=== PATIENT | male | born 1960 | race Caucasian/White ===

== ENCOUNTER 2017-06-06 15:57 | Emergency (ER) | payer MEDICAID, SELFPAY ==
[2017-06-06 15:59] VITALS: BP 130/78; PULSE 75; RESP 16; TEMP 36.8; O2SAT 98; BMI 31.4
--- NOTE | 2017-06-06 16:21 | HMH.EDURI ---
ED Disposition Clinical Impression: Influenza Disposition: Home, Self-Care Condition on Discharge: Good Additional Instructions: basic hygiene and quarantine precautions . - Critical Care Critical Care Time: No Attestation: On , the high probability of a clinically significant, sudden or life threatening deterioration of the following system(s) required my full and direct attention, intervention and personal management. The time I documented below is in addition to time spent performing reported procedures but includes the following listed in this critical care notation. Medical Decision Making - Medical Records Medical records reviewed: Yes: I reviewed the patient's medical records. Vital Signs: 06/06/17 15:59 06/06/17 16:24 Temperature 98.3 F Temperature Source Oral Oral Pulse Rate [Right Brachial] 75 Respiratory Rate 16 Blood Pressure [Right Arm] 130/78 Blood Pressure Mean [Right Arm] 95 Blood Pressure Source [Right Arm] Automatic Cuff Blood Pressure Position [Right Arm] Sitting 02 Sat by Pulse Oximetry 98 Oxygen Delivery Method Room Air - Lab Data Lab Results 06/06/17 16:10: Influenza Type A Ag Negative, Influenza Type B Ag Positive A, Group A Strep Rapid Negative Orders (Tests/Meds): ED MEDICATIONS Discontinued Medications Generic Name Dose Route Start Last Admin Trade Name Freq PRN Reason Stop Dose Admin Acetaminophen 1,000 mg 06/06/17 16:28 06/06/17 16:32 Tylenol 500mg Tablet PO 06/06/17 16:29 1,000 mg ONCE ONE Administration ORDERS Category Date Time Status Strep Screen Confirmation Stat Micro 06/06/17 16:10 Received - Antonio Inquiry Pt receiving controlled substance: No Antonio was queried for this patient: No URI/Sore Throat HPI - General Chief Complaint: Fever Stated Complaint: Fever, weakness Mode of Arrival: Ambulatory Source of Information: Patient, Spouse Limitations: No Limitations Description of Symptoms (Recalled from ER Triage Doc. by RN): Patient states he has has a fever and weakness for 2 days. States he has also had a slight cough - History of Present Illness HPI Narrative: 57 years old white male diabetic who started experiencing headache sore throat productive cough since yesterday. States that his brother was sick with similar symptoms. His sat is 100% on room air. Heart rate is 73/min. Complaint: fever, sore throat Onset (ago): day(s) (started Yesterday.) Relieving factors: nothing Exacerbating factors: nothing Description of mucous: yellow Able to tolerate fluids by mouth: Yes Context: sick contacts (his brother . ) Associated symptoms: denies other symptoms - Related Data Home Medications Medication Instructions Recorded Confirmed aspirin 81 mg tablet,delayed 81 mg PO QDAY 05/28/17 06/06/17 release blood sugar diagnostic strips See Dose Instructions .ROUTE 05/28/17 06/06/17 .MEDSUPPLY #20 each gabapentin 300 mg capsule 300 mg PO TID 05/28/17 06/06/17 hydroxyzine pamoate 25 mg capsule 25 mg PO QHS PRN cap 05/28/17 06/06/17 lisinopril 5 mg tablet 5 mg PO QDAY 05/28/17 06/06/17 lovastatin 10 mg tablet 10 mg PO QHS tab 05/28/17 06/06/17 metformin 500 mg tablet 500 mg PO BID 05/28/17 06/06/17 triamterene 37.5 1 tab PO QAM 05/28/17 06/06/17 mg-hydrochlorothiazide 25 mg tablet Allergies Allergy/AdvReac Type Severity Reaction Status Date / Time aspirin [ASPIRIN] Allergy Intermediate HEART Verified 05/28/17 13:55 BEATING FAST [facility] History I have reviewed the patient's past medical history: Yes Medical History: Reports:: Diabetes Mellitus Type 2 Denies:: Cancer, MRSA Other Surgeries: No: Pacemaker Amputation: No Fractures: No - *Social History Educational Level: Attended High School Smoking Status: Never smoker Alcohol Intake: never - Psychiatric History Expresses thoughts of harming self/others: None Suicide Plan Description: No Plan ROS Obtained: Yes All syste
--- NOTE | 2017-06-06 16:25 | ED_ITS ---
ED Disposition Clinical Impression: Influenza Disposition: Home, Self-Care Condition on Discharge: Good Additional Instructions: basic hygiene and quarantine precautions . - Critical Care Critical Care Time: No Attestation: On , the high probability of a clinically significant, sudden or life threatening deterioration of the following system(s) required my full and direct attention, intervention and personal management. The time I documented below is in addition to time spent performing reported procedures but includes the following listed in this critical care notation. Medical Decision Making - Medical Records Medical records reviewed: Yes: I reviewed the patient's medical records. Vital Signs: 06/06/17 15:59 06/06/17 16:24 Temperature 98.3 F Temperature Source Oral Oral Pulse Rate [Right Brachial] 75 Respiratory Rate 16 Blood Pressure [Right Arm] 130/78 Blood Pressure Mean [Right Arm] 95 Blood Pressure Source [Right Arm] Automatic Cuff Blood Pressure Position [Right Arm] Sitting 02 Sat by Pulse Oximetry 98 Oxygen Delivery Method Room Air - Lab Data Lab Results 06/06/17 16:10: Influenza Type A Ag Negative, Influenza Type B Ag Positive A, Group A Strep Rapid Negative Orders (Tests/Meds): ED MEDICATIONS Discontinued Medications Generic Name Dose Route Start Last Admin Trade Name Freq PRN Reason Stop Dose Admin Acetaminophen 1,000 mg 06/06/17 16:28 06/06/17 16:32 Tylenol 500mg Tablet PO 06/06/17 16:29 1,000 mg ONCE ONE Administration ORDERS Category Date Time Status Strep Screen Confirmation Stat Micro 06/06/17 16:10 Received - Antonio Inquiry Pt receiving controlled substance: No Antonio was queried for this patient: No URI/Sore Throat HPI - General Chief Complaint: Fever Stated Complaint: Fever, weakness Mode of Arrival: Ambulatory Source of Information: Patient, Spouse Limitations: No Limitations Description of Symptoms (Recalled from ER Triage Doc. by RN): Patient states he has has a fever and weakness for 2 days. States he has also had a slight cough - History of Present Illness HPI Narrative: 57 years old white male diabetic who started experiencing headache sore throat productive cough since yesterday. States that his brother was sick with similar symptoms. His sat is 100% on room air. Heart rate is 73/min. Complaint: fever, sore throat Onset (ago): day(s) (started Yesterday.) Relieving factors: nothing Exacerbating factors: nothing Description of mucous: yellow Able to tolerate fluids by mouth: Yes Context: sick contacts (his brother . ) Associated symptoms: denies other symptoms - Related Data Home Medications Medication Instructions Recorded Confirmed aspirin 81 mg tablet,delayed 81 mg PO QDAY 05/28/17 06/06/17 release blood sugar diagnostic strips See Dose Instructions .ROUTE 05/28/17 06/06/17 .MEDSUPPLY #20 each gabapentin 300 mg capsule 300 mg PO TID 05/28/17 06/06/17 hydroxyzine pamoate 25 mg capsule 25 mg PO QHS PRN cap 05/28/17 06/06/17 lisinopril 5 mg tablet 5 mg PO QDAY 05/28/17 06/06/17 lovastatin 10 mg tablet 10 mg PO QHS tab 05/28/17 06/06/17 metformin 500 mg tablet 500 mg PO BID 05/28/17 06/06/17 triamterene 37.5
[2017-06-06 16:29] VITALS: BP 130/78; PULSE 68; RESP 18; O2SAT 95
[2017-06-06 16:43] LABS: Strep Scrn Group A (Rapid) Negative (Negative)
[2017-06-06 17:50] VITALS: BP 130/78; PULSE 68; RESP 18; TEMP 36.8; O2SAT 95
== END 2017-06-06 17:50 | disposition home or self-care (01) ==
PROVIDERS: Emergency Provider Emergency Medicine
DX: J11.1 Influenza due to unidentified influenza virus with other respiratory manifestations (principal); E11.9 Type 2 diabetes mellitus without complications; Z79.84 Long term (current) use of oral hypoglycemic drugs; Z79.82 Long term (current) use of aspirin
CPT/HCPCS: 87275; 87276; 87430; 99283

== ENCOUNTER → 2017-10-08 12:55 | Outpatient (CLI) | payer MEDICAID, SELFPAY ==
--- NOTE | 2017-10-08 12:57 | MR_ITS ---
MR lumbar spine wo con, MR 3-d myelogram/MRCP Ordering Physician: Burke Miles MD Patient Age: 57 years: Male HISTORY: Low back pain bilateral leg numbness 6 -- 12 months. Progressing recently. TECHNIQUE: Sagittal STIR, T1, T2, axial T1 and T2. On 1.5T Siemens wide bore MRI. 3-D MR myelogram image set obtained & performed on MRI workstation. Additional sagittal thin section T2 weighted dataset obtained from this latter acquisition as well (---76 CPT) COMPARISON :Plain films lumbar spine 08/25/2013 FINDINGS Patient has modest underlying volume osseous spinal canal. Vertebral bodies are intact and the disc spaces fracture fairly well-maintained throughout the lumbar region. Beginning superiorly At lower thoracic spine T 11/12 disc: mild diffuse disc bulge at this level along mild kyphosis and with mild facet hypertrophy combine to yield mild spinal stenosis at T11/12. T12/L1.:. Disc intact. No foramen patent. L1/L2, disc intact.. Mild facet hypertrophy L2/3. Disc intact. Moderate facet hypertrophy arthropathy does narrow the spinal canal with borderline spinal stenosis.. . There is a focal elongated cystic area overlying the right facet possibly extension of the synovial cyst from the facet This measured 18 mm length x 7.5 mm AP. L3/4. Diffuse disc bulge most evident towards the left foramen. This along with moderate facet hypertrophy yields mild/moderate left foraminal encroachment and borderline/mild central canal stenosis.. Moderate bilateral facet hypertrophy. L4/5 mild foraminal disc bulge most evident towards the left. Prominent bilateral Facet hypertrophy most exuberant at the left facet.. Mildly flavum hypertrophy .. Also bilateral foraminal encroachment most pronounced the left. .. The features combine to yield moderate central canal stenosis... L5/S1:. Only scant disc bulge but there is prominent facet hypertrophy bilaterally. Fairly exuberant. These Features (mainly the facet hypertrophy) yields mild/moderate bilateral foraminal encroachment bilateral,. Left foramen narrowing greater than right 3-D MRI myelogram image set shows multilevel tapering of the spinal canal/multilevel spinal stenosis. On spinal stenosis most pronounced at L4/5 with mild spinal stenosis L 3/4 L2/3. IMPRESSION ...... . Degenerative changes spine, with developing multilevel spinal stenosis.. Modest volume underlying osseous spinal canal is further narrowed due to prominent facet hypertrophy along with mild bulging disc at multiple levels.: ... L4/5, spinal stenosis most evident at this level. Moderate Spinal Stenosis, & left foraminal encroachment >right.... Due mainly due to exuberant facet hypertrophy. ... L3/4. Foraminal disc bulge most evident towards left foramen. Moderate bilateral facet hypertrophy . Features mild central canal stenosis & moderate left foraminal encroachment ... L2/3. Mild foraminal disc bulge, along with moderate facet hypertrophy. Yields mild central canal stenosis. Only minimal bilateral foraminal encroachment Also note mild central canal stenosis at T11/12. Mild disc bulge,, accentuated kyphosis along with posterior element hypertrophy- yields mild central canal stenosis at this level as well
== END ==
PROVIDERS: PCP Emergency Medicine; Visit Provider Emergency Medicine
DX: M54.9 Dorsalgia, unspecified (principal)
CPT/HCPCS: 72148; 76376

== ENCOUNTER → 2017-11-01 13:26 | Outpatient (POV) | payer MEDICAID, SELFPAY ==
[2017-11-01 13:43] VITALS: BP 139/85; PULSE 85; RESP 18; O2SAT 98
--- NOTE | 2017-11-01 16:09 | HMH.PMCON ---
Assessment and Plan (1) Degenerative disc disease, lumbar Current visit: Yes Status: Chronic Category: Medical Code(s): M51.36 - Other intervertebral disc degeneration, lumbar region (2) Bulging lumbar disc Current visit: No Status: Chronic Category: Medical Code(s): M51.26 - Other intervertebral disc displacement, lumbar region - Assessment and plan all Dx Assessment and Plan for all problems:: I discussed interventional therapy with the patient patient is uninterested at this time. Patient states that he does not like needles. Patient states he would rather just take a pain pill. Patient is upset that nobody has prescribed him any narcotic pain medication. Patient is to continue on gabapentin and keep his neurosurgical consultation on December 09. I informed the patient he was welcome to come and have injections at some point however we would not consider prescribing narcotics prior to exhausting conservative therapies including physical therapy. Patient is uninterested in this. This note was dictated using voice recognition software and may contain errors or omissions HPI - Data of Consult Consult date: 11/01/17 Requesting Physician: Tanesha Olivo APRN Primary Care Provider: Burke Miles MD Family Provider: Referral Provider, - Consult Narrative Reason for consult: Lower back pain History of present illness: Mr. Sung is a 57 year old male presents today for consultation in regards to his low back pain. Patient states he has numbness and tingling in his bilateral legs. Patient states that his pain is an 8 out of 10 today. Patient states it increases when he bends or walks. Patient states rest makes it better. Patient states that he has pain down his left leg more so than his right leg. Patient is currently on gabapentin 600 mg 1 p.o. 3 times daily. Patient states that this is not controlling his pain as much as he would like. I discussed with the patient if he stopped it if it would be beneficial. Patient states that if he stopped his gabapentin his pain would increase significantly. Patient does have a MRI with pathology. Patient already has a neuro surgical consultation. Patient states he has not been to physical therapy. Patient and I discussed injective therapy he is uninterested in this at this time. Patient states he would like pain medication. CC: Tanesha Olivo APRN [facility] History I have reviewed the patient's past medical history: Yes Medical History: Reports:: Diabetes Mellitus Type 2, Hypertension Denies:: Cancer, Internal Pacemaker, MRSA Other Surgeries: Yes: No Previous Surgery. No: Pacemaker Amputation: No Fractures: No - *Social History Smoking Status: Current every day smoker Tobacco Type: smokeless tobacco Alcohol Intake: never Substance Use Type: denies use Occupational Status: disabled Housing: other Household Members: spouse - Psychiatric History Expresses thoughts of harming self/others: None Suicide Plan Description: No Plan *Family Hx:: Heart Attack, Hypertension, Hyperlipidemia, Diabetes, Cancer Review of Systems - Review of Systems ROS General: no recent weight change, no fever, no sleep disturbances Respiratory: no cough, no shortness of air, no recurring pulmonary infections Cardiovascular/Peripheral Vascular: No chest pain, No palpitations, no edema, no shortness of breath. Gastrointestinal: no incontinence, normal bowel movements reported Genitourinary: no incontinence Musculoskeletal: Back pain, leg pain Psychiatric: normal mood/ affect Neurological: [denies weakness in extremities], [denies balance issues] Meds Home Medications Medication Instructions Recorded Confirmed Type triamterene 37.5 1 tab PO QAM 05/28/17 06/06/17 History mg-hydrochlorothiazide 25 mg tablet Allergies Allergy/AdvReac Type Severity Reaction Status Date / Time aspirin [ASPIRIN] Allergy Intermediate HEART Verified 09/24/17 1
--- NOTE | 2017-11-01 16:13 | P.CONS_ITS ---
Assessment and Plan (1) Degenerative disc disease, lumbar Current visit: Yes Status: Chronic Category: Medical Code(s): M51.36 - Other intervertebral disc degeneration, lumbar region (2) Bulging lumbar disc Current visit: No Status: Chronic Category: Medical Code(s): M51.26 - Other intervertebral disc displacement, lumbar region - Assessment and plan all Dx Assessment and Plan for all problems:: I discussed interventional therapy with the patient patient is uninterested at this time. Patient states that he does not like needles. Patient states he would rather just take a pain pill. Patient is upset that nobody has prescribed him any narcotic pain medication. Patient is to continue on gabapentin and keep his neurosurgical consultation on December 09. I informed the patient he was welcome to come and have injections at some point however we would not consider prescribing narcotics prior to exhausting conservative therapies including physical therapy. Patient is uninterested in this. This note was dictated using voice recognition software and may contain errors or omissions HPI - Data of Consult Consult date: 11/01/17 Requesting Physician: Tanesha Olivo APRN Primary Care Provider: Burke Miles MD Family Provider: Referral Provider, - Consult Narrative Reason for consult: Lower back pain History of present illness: Mr. Sung is a 57 year old male presents today for consultation in regards to his low back pain. Patient states he has numbness and tingling in his bilateral legs. Patient states that his pain is an 8 out of 10 today. Patient states it increases when he bends or walks. Patient states rest makes it better. Patient states that he has pain down his left leg more so than his right leg. Patient is currently on gabapentin 600 mg 1 p.o. 3 times daily. Patient states that this is not controlling his pain as much as he would like. I discussed with the patient if he stopped it if it would be beneficial. Patient states that if he stopped his gabapentin his pain would increase significantly. Patient does have a MRI with pathology. Patient already has a neuro surgical consultation. Patient states he has not been to physical therapy. Patient and I discussed injective therapy he is uninterested in this at this time. Patient states he would like pain medication. CC: Tanesha Olivo APRN [facility] History I have reviewed the patient's past medical history: Yes Medical History: Reports:: Diabetes Mellitus Type 2, Hypertension Denies:: Cancer, Internal Pacemaker, MRSA Other Surgeries: Yes: No Previous Surgery. No: Pacemaker Amputation: No Fractures: No - *Social History Smoking Status: Current every day smoker Tobacco Type: smokeless tobacco Alcohol Intake: never Substance Use Type: denies use Occupational Status: disabled Housing: other Household Members: spouse - Psychiatric History Expresses thoughts of harming self/others: None Suicide Plan Description: No Plan *Family Hx:: Heart Attack, Hypertension, Hyperlipidemia, Diabetes, Cancer Review of Systems - Review of Systems ROS General: no recent weight change, no fever, no sleep disturbances Respiratory: no cough, no shortness of air, no recurring pulmonary infections Cardiovascular/Peripheral Vascular: No chest pain, No palpitations, no edema, no shortness of breath. Gastrointestinal: no incontinence, normal bowel movements reported Genitourinary: no incontinence Musculoskeletal: Back pain, leg pain Psychiatric: normal mood/ affect N
== END ==
PROVIDERS: PCP Emergency Medicine; Visit Provider Clinical Nurse Specialist Family Health
DX: M51.36 Other intervertebral disc degeneration, lumbar region (principal); M51.26 Other intervertebral disc displacement, lumbar region
CPT/HCPCS: 99202

== ENCOUNTER → 2017-12-09 13:34 | Outpatient (POV) | payer MEDICAID, SELFPAY | PROVIDERS: Visit Provider Neurological Surgery | DX: Z00.00 Encounter for general adult medical examination without abnormal findings (principal) ==

== ENCOUNTER → 2017-12-14 15:22 | Outpatient (REF) | payer MEDICAID, SELFPAY ==
[2017-12-14 18:09] LABS: Basophils % 0.5 % (0.1-2.0); Eosinophils # 0.2 K/mm3 (0.0-0.4); Hematocrit 42.5 % (42.0-52.0); Hemoglobin 14.4 g/dL (14.1-18.0); Lymphocytes # 2.3 K/mm3 (0.7-4.5); Lymphocytes % 32.4 K/mm3 (10-50); Mean Corpuscular HGB Conc 33.8 g/dL (31.8-35.4); Mean Corpuscular Hemoglobin 32.6 pg (27.0-31.2); Mean Corpuscular Volume 96.5 fl (80-94); Mean Platelet Volume 9.4 fl (7.4-10.4); Monocytes # 0.5 K/mm3 (0.1-1.0); Monocytes % 6.5 % (1.7-9.3); Neutrophils # 4.1 K/mm3 (1.8-7.8); Neutrophils % 57.6 % (37.0-80.0); Platelet Count 283 K/mm3 (142-424); Red Blood Count 4.41 M/mm3 (4.60-6.20); Red Cell Distribution Width 13.3 % (11.5-17.5); White Blood Count 7.2 K/mm3 (4.8-10.8)
[2017-12-14 18:36] LABS: Blood Urea Nitrogen 16 mg/dL (7-18); Calcium 9.9 mg/dL (8.5-10.1); Carbon Dioxide 27 mmol/L (21.0-32.0); Chloride 101 mmol/L (98-107); Creatinine,Serum 1.04 mg/dL (0.70-1.30); Estimated Glomerular Filt Rate 74 ml/min (>60); GFR (African American) 89 ML/MIN (>60); Glucose 161 mg/dL (74-106); Sodium 138 mmol/L (136-145)
[2017-12-14 19:20] LABS: Hemoglobin A1C 7.1 % (0.0-7.0)
== END ==
LOC: LAB 15:22
PROVIDERS: Visit Provider Emergency Medicine
DX: E11.9 Type 2 diabetes mellitus without complications (principal); E66.3 Overweight
CPT/HCPCS: 80048; 83036; 85025

== ENCOUNTER → 2018-08-08 18:52 | Outpatient (CLI) | payer MEDICAID, SELFPAY ==
[2018-08-10 11:19] LABS: Creatinine, Urine 72.1 mg/dL (Not Estab.); Microalbumin, Urine 3.7 ug/mL (Not Estab.)
== END ==
PROVIDERS: Visit Provider Emergency Medicine
DX: E11.9 Type 2 diabetes mellitus without complications (principal)
CPT/HCPCS: 82043; 82570

== ENCOUNTER → 2018-08-29 13:17 | Outpatient (CLI) | payer MEDICAID, SELFPAY ==
[2018-08-29 14:45] LABS: Prostate Specific Ag Screen 0.3 ng/mL (0.0-4.0)
== END ==
PROVIDERS: Visit Provider Urology
DX: N40.0 Benign prostatic hyperplasia without lower urinary tract symptoms (principal)
CPT/HCPCS: 36415; G0103

== ENCOUNTER → 2018-11-08 18:06 | Outpatient (CLI) | payer MEDICAID, SELFPAY ==
[2018-11-08 19:11] LABS: Basophils # 0.1 K/mm3 (0-0.2); Basophils % 0.6 % (0.1-2.0); Eosinophils # 0.3 K/mm3 (0.0-0.4); Hematocrit 40.8 % (42.0-52.0); Hemoglobin 13.3 g/dL (14.1-18.0); Lymphocytes # 2.6 K/mm3 (0.7-4.5); Lymphocytes % 30.4 % (10-50); Mean Corpuscular HGB Conc 32.7 g/dL (31.8-35.4); Mean Corpuscular Volume 91.9 fl (80-94); Mean Platelet Volume 9.7 fl (7.4-10.4); Monocytes # 0.6 K/mm3 (0.1-1.0); Monocytes % 7.3 % (1.7-9.3); Neutrophils % 58.8 % (37.0-80.0); Platelet Count 309 K/mm3 (142-424); Red Blood Count 4.44 M/mm3 (4.60-6.20); White Blood Count 8.5 K/mm3 (4.8-10.8)
[2018-11-08 19:45] LABS: Alanine Aminotransferase 38 U/L (12-78); Albumin Level 3.8 gm/dL (3.4-5.0); Albumin/Globulin Ratio 1.1 (1.1-1.8); Alkaline Phosphatase 76 U/L (46-116); Aspartate Amino Transferase 18 U/L (15-37); Bilirubin,Total 0.5 mg/dL (0.2-1.0); Blood Urea Nitrogen 11 mg/dL (7-18); Calcium 9.1 mg/dL (8.5-10.1); Carbon Dioxide 27 mmol/L (21.0-32.0); Chloride 101 mmol/L (98-107); Chol/HDL Ratio 5.5 (1-3.5); Cholesterol 160 mg/dL (140-200); Creatinine,Serum 1.19 mg/dL (0.70-1.30); Estimated Glomerular Filt Rate 63 ml/min (>60); Free T4 (Free Thyroxine) 1.08 ng/dl (0.76-1.46); GFR (African American) 76 ML/MIN (>60); Globulin 3.4 gm/dl (1.3-3.2); Glucose 231 mg/dL (74-106); HDL Cholesterol 29 mg/dL (27-67); LDL Cholesterol 74 mg/dL (0-130); Sodium 136 mmol/L (136-145); Total Protein,Serum 7.2 gm/dL (6.4-8.2); Triglycerides 283 mg/dL (30-200); VLDL Cholesterol 57 mg/dL (0-40)
[2018-11-08 20:07] LABS: Hemoglobin A1C 8.1 % (0.0-7.0)
== END ==
PROVIDERS: Visit Provider Emergency Medicine
DX: E10.9 Type 1 diabetes mellitus without complications (principal); Z79.84 Long term (current) use of oral hypoglycemic drugs
CPT/HCPCS: 80053; 80061; 83036; 84439; 84443; 85025

== ENCOUNTER → 2018-11-16 18:08 | Outpatient (CLI) | payer MEDICAID, SELFPAY ==
[2018-11-18 11:36] LABS: Microalbumin, Urine 8.1 ug/mL (Not Estab.)
== END ==
PROVIDERS: Visit Provider Emergency Medicine
DX: E10.9 Type 1 diabetes mellitus without complications (principal); Z79.84 Long term (current) use of oral hypoglycemic drugs
CPT/HCPCS: 82043

== ENCOUNTER → 2019-11-20 09:16 | Outpatient (CLI) | payer MEDICAID, SELFPAY ==
[2019-11-20 10:23] LABS: Chloride 104 mmol/L (98-107); Sodium 138 mmol/L (136-145)
[2019-11-20 10:25] LABS: Blood Urea Nitrogen 14 mg/dl (9-20); Estimated Glomerular Filt Rate 69 ml/min (>60); GFR (African American) 83 ML/MIN (>60)
[2019-11-20 10:26] LABS: Alanine Aminotransferase 33 U/L (12-78); Albumin Level 4.2 g/dl (3.5-5.0); Albumin/Globulin Ratio 1.5 (1.1-1.8); Alkaline Phosphatase 61 U/L (38-126); Aspartate Amino Transferase 31 U/L (17-59); Basophils % 0.4 % (0.1-2.0); Bilirubin,Total 0.5 mg/dl (0.2-1.3); Calcium 9.6 mg/dl (8.4-10.2); Carbon Dioxide 26 mmol/L (22.0-30.0); Cholesterol 171 mg/dl (140-200); Eosinophils # 0.3 K/mm3 (0.0-0.4); Eosinophils % 3.7 % (0.1-12.0); Globulin 2.8 g/dL (1.3-3.2); Glucose 146 mg/dl (74-100); Hematocrit 38.4 % (42.0-52.0); Hemoglobin 13.2 g/dL (14.1-18.0); Lymphocytes # 3.1 K/mm3 (0.7-4.5); Lymphocytes % 41.9 % (10-50); Mean Corpuscular HGB Conc 34.5 g/dL (31.8-35.4); Mean Corpuscular Volume 98.5 fl (80-94); Monocytes # 0.4 K/mm3 (0.1-1.0); Monocytes % 5.6 % (1.7-9.3); Neutrophils # 3.6 K/mm3 (1.8-7.8); Neutrophils % 48.4 % (37.0-80.0); Platelet Count 229 K/mm3 (142-424); Red Cell Distribution Width 13.5 % (11.5-17.5); Triglycerides 267 mg/dl (30-150); VLDL Cholesterol 53 mg/dL (0-40); White Blood Count 7.5 K/mm3 (4.8-10.8)
[2019-11-20 10:27] LABS: Chol/HDL Ratio 5.7 (1-3.5); HDL Cholesterol 30 mg/dl (40-60)
[2019-11-20 10:37] LABS: Direct LDL Cholesterol 109.18 mg/dL (100-129)
[2019-11-20 10:41] LABS: Free T4 (Free Thyroxine) 0.84 ng/dl (0.78-2.19)
[2019-11-20 12:07] LABS: 25-OH Vitamin D, Total 32.9 ng/mL (30-100)
[2019-11-20 12:14] LABS: Hemoglobin A1C 6.5 % (4.0-6.0)
[2019-11-20 14:54] LABS: Creatinine,Urine Random 74 mg/dL (Not Estab.)
[2019-11-20 14:56] LABS: Microalbumin/Creatinine Ratio 14.4
[2019-11-21 17:27] LABS: Iron 109 ug/dL (49-181)
[2019-11-21 17:37] LABS: Total Iron Binding Capacity 345 ug/dL (261-462)
[2019-11-21 18:02] LABS: Ferritin 346 ng/ml (17.9-464)
== END ==
PROVIDERS: Physician Assistant; Visit Provider Emergency Medicine
DX: E10.9 Type 1 diabetes mellitus without complications (principal); E13.9 Other specified diabetes mellitus without complications; D64.9 Anemia, unspecified
CPT/HCPCS: 36415; 80053; 80061; 82043; 82306; 82570; 82728; 83036; 83540; 83550; 84439; 84443; 85025

== ENCOUNTER → 2020-09-08 16:25 | Outpatient (CLI) | payer MEDICAID, SELFPAY | PROVIDERS: Visit Provider Emergency Medicine | DX: I10 Essential (primary) hypertension (principal) ==

== ENCOUNTER → 2020-11-11 13:42 | Outpatient (CLI) | payer MEDICAID, SELFPAY ==
[2020-11-11 13:50] LABS: Basophils # 0.1 K/mm3 (0-0.2); Basophils % 0.5 % (0.1-2.0); Eosinophils # 0.2 K/mm3 (0.0-0.4); Eosinophils % 2.4 % (0.1-12.0); Hematocrit 38.5 % (42.0-52.0); Hemoglobin 13.3 g/dL (14.1-18.0); Mean Corpuscular HGB Conc 34.4 g/dL (31.8-35.4); Mean Corpuscular Volume 96.1 fl (80-94); Mean Platelet Volume 10.4 fl (7.4-10.4); Monocytes # 0.6 K/mm3 (0.1-1.0); Monocytes % 6.7 % (1.7-9.3); Neutrophils % 56.3 % (37.0-80.0); Platelet Count 245 K/mm3 (142-424); Red Blood Count 4.01 M/mm3 (4.60-6.20); Red Cell Distribution Width 13.4 % (11.5-17.5); White Blood Count 8.8 K/mm3 (4.8-10.8)
[2020-11-11 13:55] LABS: Alanine Aminotransferase 25 U/L (12-78); Albumin Level 4.6 g/dl (3.5-5.0); Albumin/Globulin Ratio 1.5 (1.1-1.8); Alkaline Phosphatase 106 U/L (38-126); Anion Gap 15.6 mEq/L (5-15); Aspartate Amino Transferase 29 U/L (17-59); Bilirubin,Total 0.6 mg/dl (0.2-1.3); Blood Urea Nitrogen 13 mg/dl (9-20); Calcium 9.4 mg/dl (8.4-10.2); Carbon Dioxide 24 mmol/L (22.0-30.0); Chloride 103 mmol/L (98-107); Chol/HDL Ratio 6.3 (1-3.5); Cholesterol 177 mg/dl (140-200); Estimated Glomerular Filt Rate 68 ml/min (>60); GFR (African American) 83 ML/MIN (>60); Glucose 155 mg/dl (74-100); HDL Cholesterol 28 mg/dl (40-60); Potassium 4.6 mmoL/L (3.5-5.1); Sodium 138 mmol/L (136-145); Total Protein,Serum 7.6 g/dl (6.3-8.2); Triglycerides 325 mg/dl (30-150); VLDL Cholesterol 65 mg/dL (0-40)
[2020-11-11 14:06] LABS: Direct LDL Cholesterol 113.98 mg/dL (100-129)
[2020-11-11 14:12] LABS: Free T4 (Free Thyroxine) 1.31 ng/dl (0.78-2.19)
[2020-11-11 14:25] LABS: Prostate Specific Ag Screen 0.4 ng/ml (0.0-4.0)
[2020-11-11 14:28] LABS: Thyroid Stimulating Hormone 3.01 uIU/mL (0.465-4.68)
[2020-11-11 17:28] LABS: Hemoglobin A1C 6.9 % (4.0-6.0)
== END ==
PROVIDERS: Visit Provider Emergency Medicine
DX: E66.3 Overweight (principal); E10.9 Type 1 diabetes mellitus without complications; I10 Essential (primary) hypertension; E78.5 Hyperlipidemia, unspecified; Z79.84 Long term (current) use of oral hypoglycemic drugs; Z12.5 Encounter for screening for malignant neoplasm of prostate
CPT/HCPCS: 80053; 80061; 83036; 84439; 84443; 85025; G0103

== ENCOUNTER 2021-01-01 22:53 | Emergency (ER) | payer MEDICAID, SELFPAY ==
[2021-01-01 23:55] VITALS: BP 111/83; PULSE 84; RESP 16; TEMP 39.1; O2SAT 93; BMI 32.5
--- NOTE | 2021-01-02 | XR_ITS ---
PROCEDURE INFORMATION: Exam: XR Chest Exam date and time: 01/02/2021 12:00 AM Age: 60 years old Clinical indication: Pain; Cough; Chest pressure; Additional info: Chest pain TECHNIQUE: Imaging protocol: XR of the chest. Views: 2 views. COMPARISON: No relevant prior studies available. FINDINGS: Lungs: Patchy bilateral pulmonary opacities suspicious for atypical infection. Possible mild pulmonary venous congestion. Pleural spaces: Unremarkable. No pleural effusion. No pneumothorax. Heart/Mediastinum: Unremarkable. No cardiomegaly. Bones/joints: Unremarkable. IMPRESSION: 1. Patchy bilateral pulmonary opacities suspicious for atypical infection. 2. Possible mild pulmonary venous congestion.
[2021-01-02 00:23] LABS: Coronavirus 19, PCR Not Detected (NotDetected); Influenza A, PCR Not Detected (NotDetected); Influenza B, PCR Not Detected (NotDetected)
--- NOTE | 2021-01-02 00:26 | PC.NURSE ---
called to patient's room for complaints of something wrong per techs. noted patient to have had a vagal response to the covid swabbing. bp and pulse wnl. oxygen applied per nrb and ammonia inhalant used to wake up . pt a&ox4 upon awakening. sitting up and moving all extremities. vss. will cont to monitor.
[2021-01-02 00:31] LABS: Lactic Acid 1.8 mmol/L (0.7-2.1)
[2021-01-02 00:32] LABS: Alanine Aminotransferase 31 U/L (12-78); Albumin Level 4.8 g/dl (3.5-5.0); Albumin/Globulin Ratio 1.3 (1.1-1.8); Alkaline Phosphatase 77 U/L (38-126); Anion Gap 19.6 mEq/L (5-15); Aspartate Amino Transferase 33 U/L (17-59); Bilirubin,Total 0.7 mg/dl (0.2-1.3); Blood Urea Nitrogen 11 mg/dl (9-20); Calcium 9.4 mg/dl (8.4-10.2); Carbon Dioxide 24 mmol/L (22.0-30.0); Chloride 99 mmol/L (98-107); Creatinine Clearance Estimated 87 mL/min (50-200); Estimated Glomerular Filt Rate 68 ml/min (>60); GFR (African American) 83 ML/MIN (>60); Globulin 3.7 g/dL (1.3-3.2); Glucose 114 mg/dl (74-100); Potassium 4.6 mmoL/L (3.5-5.1); Sodium 138 mmol/L (136-145); Total Protein,Serum 8.5 g/dl (6.3-8.2)
[2021-01-02 00:33] LABS: Basophils # 0.1 K/mm3 (0-0.2); Basophils % 0.8 % (0.1-2.0); Eosinophils # 0.4 K/mm3 (0.0-0.4); Eosinophils % 3.8 % (0.1-12.0); Hematocrit 41.2 % (42.0-52.0); Hemoglobin 13.8 g/dL (14.1-18.0); Lymphocytes # 2.8 K/mm3 (0.7-4.5); Lymphocytes % 24.7 % (10-50); Mean Corpuscular HGB Conc 33.6 g/dL (31.8-35.4); Mean Corpuscular Hemoglobin 31.8 pg (27.0-31.2); Mean Corpuscular Volume 94.5 fl (80-94); Mean Platelet Volume 9.5 fl (7.4-10.4); Monocytes # 0.7 K/mm3 (0.1-1.0); Monocytes % 6.3 % (1.7-9.3); Neutrophils # 7.2 K/mm3 (1.8-7.8); Neutrophils % 64.3 % (37.0-80.0); Platelet Count 246 K/mm3 (142-424); Red Blood Count 4.35 M/mm3 (4.60-6.20); Red Cell Distribution Width 13.6 % (11.5-17.5); White Blood Count 11.2 K/mm3 (4.8-10.8)
--- NOTE | 2021-01-02 01:53 | HMH.EDURI ---
ED Disposition Clinical Impression: Bronchitis Reactive airway disease with wheezing Qualifiers: Asthma severity: moderate Asthma persistence: persistent Asthma complication type: with acute exacerbation Qualified Code(s): J45.41 - Moderate persistent asthma with (acute) exacerbation Disposition: Home, Self-Care Condition on Discharge: Good Instructions: DI for Acute Bronchitis Additional Instructions: use meds and see pcp next week for follow up Prescriptions: levoFLOXacin [Levaquin 500mg tab] 500 mg PO DAILY #7 tab Transmission Status: Pending to [place]/[facility]acy #[id number] predniSONE [Prednisone 20mg Tab] 20 mg PO BID #10 tab Transmission Status: Pending to [place]/[facility]acy #[id number] Benzonatate [Tessalon Perle 100mg Cap] 100 mg PO TID #30 cap Transmission Status: Pending to [place]/pharmacy #[id number] Referrals: Burke Miles MD [Primary Care Provider] - - Critical Care Critical Care Time: No Attestation: On 01/01/21, the high probability of a clinically significant, sudden or life threatening deterioration of the following system(s) required my full and direct attention, intervention and personal management. The time I documented below is in addition to time spent performing reported procedures but includes the following listed in this critical care notation. Medical Decision Making - Medical Records Medical records reviewed: Yes: I reviewed the patient's medical records. - Antonio Inquiry Pt receiving controlled substance: No Vital Signs: 01/01/21 23:55 Temperature 102.3 F H Temperature Source Oral Pulse Rate [Right Brachial] 84 Respiratory Rate 16 Blood Pressure [Right Arm] 111/83 Blood Pressure Mean [Right Arm] 92 02 Sat by Pulse Oximetry 93 L Oxygen Delivery Method Room Air - Lab Data Lab results reviewed: Yes: I reviewed the patient's lab results. Lab Results 01/02/21 00:05: WBC 11.2 H, RBC 4.35 L, Hgb 13.8 L, Hct 41.2 L, MCV 94.5 H, MCH 31.8 H, MCHC 33.6, RDW 13.6, Plt Count 246, MPV 9.5, Neut % (Auto) 64.3, Lymph % (Auto) 24.7, [place] % (Auto) 6.3, Eos % (Auto) 3.8, Baso % (Auto) 0.8, Neut # (Auto) 7.2, Lymph # (Auto) 2.8, [place] # (Auto) 0.7, Eos # (Auto) 0.4, Baso # (Auto) 0.1 01/02/21 00:05: Sodium 138, Potassium 4.6, Chloride 99, Carbon Dioxide 24, Anion Gap 19.6 H, BUN 11, Creatinine 1.10, Estimated Creat Clear 87, Estimated GFR 68, Est GFR ( Amer) 83, Glucose 114 H, Calcium 9.4, Total Bilirubin 0.7, AST 33, ALT 31, Alkaline Phosphatase 77, Total Protein 8.5 H, Albumin 4.8, Globulin 3.7 H, Albumin/Globulin Ratio 1.3 01/02/21 00:05: Lactate 1.8 01/02/21 00:05: SARS-CoV-2 (PCR) Not detected, Influenza A Untype (PCR) Not detected, Influenza Type B (PCR) Not detected Result diagrams: 01/02/21 00:05 01/02/21 00:05 Orders (Tests/Meds): ED MEDICATIONS Generic Name Dose Route Start Last Admin Trade Name Freq PRN Reason Stop Dose Admin Sodium Chloride 1,000 mls @ 999 mls/hr 01/02/21 00:15 01/02/21 01:41 Sod Chlor 0.9% 1000ml Bag IV 01/02/21 01:15 999 mls/hr .Q1H1M GALLO Administration Discontinued Medications Generic Name Dose Route Start Last Admin Trade Name Freq PRN Reason Stop Dose Admin Acetaminophen 500 mg 01/02/21 00:01 01/02/21 00:19 Acetaminophen 500mg Tab PO 01/02/21 00:02 Not Given ONCE ONE Acetaminophen 1,000 mg 01/02/21 00:11 01/02/21 00:19 Acetaminophen 500mg Tab PO 01/02/21 00:12 1,000 mg ONCE ONE Administration Albuterol/Ipratropium 3 ml 01/02/21 01:58 Ipratropium/Albuterol 3 Ml Neb 01/02/21 01:59 ONCE ONE Ibuprofen 400 mg 01/02/21 00:01 01/02/21 00:20 Ibuprofen 400 Mg Tablet PO 01/02/21 00:02 Not Given ONCE ONE Ibuprofen 600 mg 01/02/21 00:11 01/02/21 00:19 Ibuprofen 600 Mg Tablet PO 01/02/21 00:12 600 mg ONCE ONE Administration Levofloxacin 500 mg 01/02/21 01:58 Levofloxacin 500mg Tab PO 01/02/21 01:59 ONCE ONE Methylprednisolone Sodium Succinate 125 mg 01/02/21 01:58
[2021-01-02 02:14] VITALS: BP 119/72; PULSE 79; RESP 16; TEMP 37.2; O2SAT 96
== END 2021-01-02 02:21 | disposition home or self-care (01) ==
PROVIDERS: Emergency Provider Emergency Medicine; PCP Emergency Medicine
DX: J20.9 Acute bronchitis, unspecified (principal); J45.41 Moderate persistent asthma with (acute) exacerbation; E11.9 Type 2 diabetes mellitus without complications; E78.5 Hyperlipidemia, unspecified; I10 Essential (primary) hypertension; Z20.822 Contact with and (suspected) exposure to COVID-19; Z79.899 Other long term (current) drug therapy
CPT/HCPCS: 71046; 80053; 83605; 85025; 87040; 96365; 96375; 99283; J2405; U0003

== ENCOUNTER → 2021-06-02 15:22 | Outpatient (CLI) | payer MEDICAID, SELFPAY | PROVIDERS: Visit Provider Nurse Practitioner | DX: U07.1 COVID-19 (principal) | CPT/HCPCS: C9803; U0003; U0005 ==

== ENCOUNTER → 2021-07-08 14:34 | Outpatient (CLI) | payer MEDICAID, SELFPAY ==
--- NOTE | 2021-07-08 14:37 | XR_ITS ---
FINAL REPORT CLINICAL HISTORY: R shoulder pain, patient awoke with right shoulder pain, no known injury FINDINGS: RIGHT SHOULDER A single internal rotation view of the right shoulder was obtained. There is no acute fracture or dislocation. There are mild degenerative changes of the acromioclavicular joint. Visualized joint spaces are normally aligned. Soft tissues are unremarkable. IMPRESSION: Mild degenerative change of the acromioclavicular joint. No acute bony abnormality. Reviewed, Interpreted and Dictated by Brian Elias III, MD Transcribed by Lulú Alvarez Authenticated by Brian Elias III, MD on 07/08/2021 03:42:54 PM [facility]
== END ==
PROVIDERS: PCP Emergency Medicine; Visit Provider Emergency Medicine
DX: M79.621 Pain in right upper arm (principal)
CPT/HCPCS: 73020

== ENCOUNTER → 2021-07-10 15:19 | Outpatient (CLI) | payer MEDICAID, SELFPAY ==
--- NOTE | 2021-07-10 15:25 | XR_ITS ---
FINAL REPORT CLINICAL HISTORY: pain x 4 months FINDINGS: LEFT SHOULDER Three views demonstrate no acute fracture or dislocation. There are mild degenerative changes of the acromioclavicular and the glenohumeral joints. The visualized bony structures are well aligned. No soft tissue abnormality is seen. IMPRESSION: Mild degenerative changes. Reviewed, Interpreted and Dictated by Brian Elias III, MD Transcribed by Huang Estrella Authenticated by Brian Elias III, MD on 07/10/2021 04:37:30 PM [facility]
== END ==
PROVIDERS: PCP Emergency Medicine; Visit Provider Emergency Medicine
DX: M25.512 Pain in left shoulder
CPT/HCPCS: 73030

== ENCOUNTER → 2021-07-24 12:17 | Outpatient (CLI) | payer MEDICAID, SELFPAY | PROVIDERS: PCP Emergency Medicine; Visit Provider Urology | DX: R06.09 Other forms of dyspnea (principal); R07.9 Chest pain, unspecified | CPT/HCPCS: 93306 ==

== ENCOUNTER → 2021-08-18 11:18 | Outpatient (CLI) | payer MEDICAID, SELFPAY | PROVIDERS: PCP Emergency Medicine; Visit Provider Orthopaedic Surgery | DX: M25.512 Pain in left shoulder (principal) ==

== ENCOUNTER → 2021-10-15 14:28 | Outpatient (CLI) | payer MEDICAID, SELFPAY ==
[2021-10-15 12:43] LABS: Basophils # 0.1 K/mm3 (0-0.2); Basophils % 1.2 % (0.1-2.0); Eosinophils # 0.3 K/mm3 (0.0-0.4); Eosinophils % 3.2 % (0.1-12.0); Hematocrit 38.4 % (42.0-52.0); Hemoglobin 12.9 g/dL (14.1-18.0); Lymphocytes # 2.4 K/mm3 (0.7-4.5); Lymphocytes % 30.1 % (10-50); Mean Corpuscular HGB Conc 33.7 g/dL (31.8-35.4); Mean Corpuscular Volume 100.7 fl (80-94); Monocytes # 0.5 K/mm3 (0.1-1.0); Monocytes % 6.3 % (1.7-9.3); Neutrophils # 4.7 K/mm3 (1.8-7.8); Neutrophils % 59.1 % (37.0-80.0); Platelet Count 267 K/mm3 (142-424); Red Blood Count 3.81 M/mm3 (4.60-6.20); Red Cell Distribution Width 13.6 % (11.5-17.5); White Blood Count 7.9 K/mm3 (4.8-10.8)
[2021-10-15 12:48] LABS: Alanine Aminotransferase 21 U/L (12-78); Albumin Level 3.9 g/dl (3.5-5.0); Albumin/Globulin Ratio 1.5 (1.1-1.8); Alkaline Phosphatase 84 U/L (38-126); Anion Gap 14.6 mEq/L (5-15); Aspartate Amino Transferase 23 U/L (17-59); Blood Urea Nitrogen 14 mg/dl (9-20); Calcium 9.3 mg/dl (8.4-10.2); Carbon Dioxide 23 mmol/L (22.0-30.0); Chloride 106 mmol/L (98-107); Chol/HDL Ratio 5.9 (1-3.5); Cholesterol 148 mg/dl (140-200); Estimated Glomerular Filt Rate 68 ml/min (>60); GFR (African American) 82 ML/MIN (>60); Globulin 2.6 g/dL (1.3-3.2); Glucose 175 mg/dl (74-100); HDL Cholesterol 25 mg/dl (40-60); Potassium 4.6 mmoL/L (3.5-5.1); Sodium 139 mmol/L (136-145); Total Protein,Serum 6.5 g/dl (6.3-8.2); Triglycerides 254 mg/dl (30-150); VLDL Cholesterol 51 mg/dL (0-40)
[2021-10-15 12:51] LABS: Bilirubin,Total < 0.1 mg/dl (0.2-1.3)
[2021-10-15 13:05] LABS: Free T4 (Free Thyroxine) 1.22 ng/dl (0.78-2.19)
[2021-10-15 13:06] LABS: 25-OH Vitamin D, Total 27.1 ng/mL (30-100)
[2021-10-15 13:19] LABS: Thyroid Stimulating Hormone 2.59 uIU/mL (0.465-4.68)
[2021-10-15 13:31] LABS: Microalbumin/Creatinine Ratio 23.4
[2021-10-15 13:36] LABS: Creatinine,Urine Random 93 mg/dL (Not Estab.)
[2021-10-15 14:22] LABS: Hemoglobin A1C 6.7 % (4.0-6.0)
[2021-10-16 10:43] LABS: Vitamin B12 200 pg/mL (239-931)
[2021-10-16 11:31] LABS: Iron 86 ug/dL (49-181)
[2021-10-16 11:42] LABS: Total Iron Binding Capacity 308 ug/dL (261-462)
== END ==
PROVIDERS: PCP Emergency Medicine; Visit Provider Emergency Medicine
DX: E13.9 Other specified diabetes mellitus without complications (principal); E55.9 Vitamin D deficiency, unspecified; D64.9 Anemia, unspecified; Z79.84 Long term (current) use of oral hypoglycemic drugs
CPT/HCPCS: 80053; 80061; 82043; 82306; 82570; 82607; 83036; 83540; 83550; 84439; 84443; 85025

== ENCOUNTER 2022-01-04 19:33 | Emergency (ER) | payer MEDICAID, SELFPAY ==
[2022-01-04 19:59] VITALS: BP 134/77; PULSE 65; RESP 16; TEMP 36.7; O2SAT 98; BMI 29.0
--- NOTE | 2022-01-04 20:05 | HMH.EDUTC ---
[facility] Disposition Clinical Impression: Dental abscess Disposition: Home, Self-Care Condition on Discharge: Good Instructions: Tooth Abscess, Acetaminophen (Alternative Therapy) Additional Instructions: Gargle warm salt water that may help with dental pain and swelling Use dental balls as you was advised in the [facility] to help with pain Over the counter Tylenol for pain Take oral antibiotics as prescribed Follow up with denist for further evaluation of teeth and further treatment Return if needed Follow up with your Family Doctor if no improvement Prescriptions: clindamycin HCL [Clindamycin HCl] 300 mg PO Q8H 10 Days #30 cap Transmission Status: Pending to [facility]/pharmacy #[id number] Referrals: Burke Miles MD [Primary Care Provider] - As needed Time of Disposition: 20:18 Medical Decision Making - Antonio Inquiry Pt receiving controlled substance: No Antonio was queried for this patient: No Vital Signs: 01/04/22 19:59 Temperature 98.1 F Temperature Source Oral Pulse Rate [Left] 65 Respiratory Rate 16 Blood Pressure [Right Arm] 134/77 Blood Pressure Mean [Right Arm] 96 02 Sat by Pulse Oximetry 98 Medical Decision Narrative: Patient states that he is not sure but doesnt think he can take PCN or Augmentin [facility] HPI - General Stated complaint: jaw pain, congestion Time Seen by Provider: 01/04/22 20:05 Mode of Arrival: Ambulatory Source of Information: Patient Limitations: No Limitations Description of Symptoms (Recalled from Triage Doc. by RN): patient comes in for cough, runny nose, tooth ache. right side top and bottom. symptoms began 2 days ago. HEENT Symptoms (Recalled from RN notes): Yes Resp Symptoms (Recalled from RN notes): Yes Skin Symptoms (Recalled from RN notes): No MS Symptoms (Recalled from RN notes): No Functional Status (Recalled from RN notes): n/a - History of Present Illness Provider Complaint: Patient states that he has a bunch of broken and rotted teeth on his right upper and lower gums States that he noticed he was having some swelling in his right upper gumline/jaw area and thinks he has an abcessed tooth States that he has also been having some sinus congestion and pain in his ear but more worried about his bad tooth - Related Data Previous Rx's Medication Instructions Recorded blood sugar diagnostic See Rx Instructions .ROUTE 09/30/21 .COMPLEX #100 strip blood sugar diagnostic See Rx Instructions .ROUTE #100 10/15/21 each blood-glucose meter See Rx Instructions .ROUTE #1 each 10/15/21 lancets 33 gauge See Rx Instructions .ROUTE 10/15/21 .COMPLEX #100 each aspirin 81 mg tablet,delayed See Rx Instructions .ROUTE 12/12/21 release .COMPLEX #30 tablet cholecalciferol (vitamin D3) 1,250 1,250 mcg PO WEEKLY #12 cap 12/12/21 mcg (50,000 unit) capsule cholecalciferol (vitamin D3) 50 50 mcg PO DAILY #90 cap 12/12/21 mcg (2,000 unit) capsule gabapentin 600 mg tablet 600 mg PO TID #90 tab 12/12/21 glipizide 2.5 mg tablet, extended See Rx Instructions .ROUTE 12/12/21 release 24 hr .COMPLEX #90 tablet hydroxyzine pamoate 25 mg capsule See Rx Instructions .ROUTE 12/12/21 .COMPLEX #60 cap levothyroxine 25 mcg tablet See Rx Instructions .ROUTE 12/12/21 .COMPLEX #90 tablet lisinopril 10 mg tablet See Rx Instructions .ROUTE 12/12/21 .COMPLEX #90 tab lovastatin 10 mg tablet See Rx Instructions .ROUTE 12/12/21 .COMPLEX #90 tablet metformin 1,000 mg tablet See Rx Instructions .ROUTE 12/12/21 .COMPLEX #60 tab metoprolol tartrate 100 mg tablet See Rx Instructions .ROUTE 12/12/21 .COMPLEX #180 tab tamsulosin 0.4 mg capsule See Rx Instructions .ROUTE 12/12/21 .COMPLEX #90 capsule triamterene 37.5 See Rx Instructions .ROUTE 12/12/21 mg-hydrochlorothiazide 25 mg tablet .COMPLEX #90 tablet clotrimazole-betamethasone 1 See Rx Instructions .ROUTE 01/01/22 %-0.05 % topical cream .COMPLEX #45 gm clindamycin HCL [Clindamycin HCl] 300 mg PO Q8H 10 Days #30 cap 01/04/22 Allergie
[2022-01-04 20:21] VITALS: BP 134/77; PULSE 65; RESP 16; TEMP 36.7
== END 2022-01-04 20:31 | disposition home or self-care (01) ==
PROVIDERS: Emergency Provider Nurse Practitioner; PCP Emergency Medicine
DX: K04.7 Periapical abscess without sinus (principal)
CPT/HCPCS: 99212; C9803; G0463; U0003; U0005

== ENCOUNTER 2023-04-20 18:08 | Emergency (ER) | payer MEDICAID, SELFPAY ==
[2023-04-20 18:09] VITALS: BP 132/63; PULSE 86; RESP 18; TEMP 36.6; O2SAT 98; BMI 30.9
--- NOTE | 2023-04-20 18:19 | HMH.EDGENADL ---
Discharge Plan Disposition Patient Disposition: Home, Self-Care Prescriptions Prescriptions: New amoxicillin-pot clavulanate 875-125 mg tablet 1 tab PO BID 7 Days Qty: 14 0RF No Action (DME) blood-glucose meter [Accu-Chek Guide Glucose Meter] Misc See Rx Instructions .Route Qty: 1 0RF Rx Instructions: Test sugar three times daily or As directed (DME) lancets 33 gauge misc See Rx Instructions .Route .COMPLEX Qty: 100 0RF Rx Instructions: USE THREE TIMES DAILY cholecalciferol (vitamin D3) 1,250 mcg (50,000 unit) capsule 1,250 mcg PO WEEKLY Qty: 12 2RF hydroxyzine pamoate 25 mg capsule See Rx Instructions .ROUTE .COMPLEX Qty: 60 3RF Dose Instruction: TAKE 1 CAPSULE BY MOUTH TWICE A DAY NEEDED FOR ANXIETY TWICE A DAY Rx Instructions: TAKE 1 CAPSULE BY MOUTH TWICE A DAY NEEDED FOR ANXIETY TWICE A DAY sildenafil 100 mg tablet 100 mg PO ONCE PRN Patient Comments: TAKE ONE TABLET BY MOUTH 30 MINUTES PRIOR TO INTERCOURSE (DME) Dexcom G7 Ad Trafficker Misc See Rx Instructions .Route Qty: 1 0RF Rx Instructions: As directed (DME) Dexcom G7 Sensor Device See Rx Instructions .Route Qty: 1 0RF Rx Instructions: As directed gabapentin 600 mg tablet 600 mg PO TID Qty: 90 1RF (DME) OneTouch Ultra Test Strip See Rx Instructions .ROUTE .COMPLEX Qty: 100 11RF Dose Instruction: TEST THREE TIMES DAILY Rx Instructions: TEST THREE TIMES DAILY (DME) Accu-Chek Guide test strips Strip See Rx Instructions .Route Qty: 100 2RF Rx Instructions: Test sugar three times daily or As directed clotrimazole-betamethasone 1-0.05 % cream See Rx Instructions .ROUTE .COMPLEX Qty: 45 1RF Dose Instruction: APPLY TO AFFECTED AREA TOPICALLY TWICE DAILY Rx Instructions: APPLY TO AFFECTED AREA TOPICALLY TWICE DAILY lovastatin 10 mg tablet See Rx Instructions .ROUTE .COMPLEX Qty: 90 2RF Dose Instruction: TAKE 1 TABLET BY MOUTH EVERYDAY AT BEDTIME Rx Instructions: TAKE 1 TABLET BY MOUTH EVERYDAY AT BEDTIME triamterene-hydrochlorothiazid 37.5-25 mg tablet See Rx Instructions .ROUTE .COMPLEX Qty: 90 2RF Dose Instruction: TAKE 1 TAB BY MOUTH IN THE MORNING FOR HIGH BLOOD PRESSURE Rx Instructions: TAKE 1 TAB BY MOUTH IN THE MORNING FOR HIGH BLOOD PRESSURE cholecalciferol (vitamin D3) 50 mcg (2,000 unit) capsule See Rx Instructions .ROUTE .COMPLEX Qty: 30 8RF Dose Instruction: TAKE 1 CAPSULE BY MOUTH EVERY DAY Rx Instructions: TAKE 1 CAPSULE BY MOUTH EVERY DAY aspirin 81 mg tablet,delayed release (DR/EC) See Rx Instructions .ROUTE .COMPLEX Qty: 30 11RF Dose Instruction: TAKE 1 TABLET BY MOUTH EVERY DAY FOR CAD Rx Instructions: TAKE 1 TABLET BY MOUTH EVERY DAY FOR CAD tamsulosin 0.4 mg capsule See Rx Instructions .ROUTE .COMPLEX Qty: 90 3RF Dose Instruction: TAKE 1 CAPSULE BY MOUTH EVERY DAY Rx Instructions: TAKE 1 CAPSULE BY MOUTH EVERY DAY glipizide 2.5 mg tablet extended release 24hr See Rx Instructions .ROUTE .COMPLEX Qty: 90 3RF Dose Instruction: TAKE 1 TABLET BY MOUTH EVERY DAY Rx Instructions: TAKE 1 TABLET BY MOUTH EVERY DAY levothyroxine 25 mcg tablet See Rx Instructions .ROUTE .COMPLEX Qty: 90 3RF Dose Instruction: TAKE 1 TABLET BY MOUTH EVERY DAY Rx Instructions: TAKE 1 TABLET BY MOUTH EVERY DAY metformin 1,000 mg tablet See Rx Instructions .ROUTE .COMPLEX Qty: 60 3RF Dose Instruction: TAKE 1 TABLET BY MOUTH TWICE A DAY Rx Instructions: TAKE 1 TABLET BY MOUTH TWICE A DAY (DME) OneTouch Verio test strips Strip See Rx Instructions .ROUTE .COMPLEX Qty: 100 1RF Dose Instruction: TEST SUGAR THREE TIMES DAILY OR DIRECTED Rx Instructions: TEST SUGAR THREE TIMES DAILY OR DIRECTED metoprolol tartrate 100 mg tablet See Rx Instruct
[2023-04-20 18:40] LABS: Coronavirus 19, PCR Not Detected (NotDetected); Influenza A, PCR Not Detected (NotDetected); Influenza B, PCR Not Detected (NotDetected)
[2023-04-20 18:46] VITALS: BP 121/63; PULSE 68; RESP 18; TEMP 36.7; O2SAT 98
== END 2023-04-20 18:47 | disposition home or self-care (01) ==
PROVIDERS: Emergency Provider Emergency Medicine; PCP Internal Medicine
DX: R22.0 Localized swelling, mass and lump, head (principal); K08.89 Other specified disorders of teeth and supporting structures; F17.290 Nicotine dependence, other tobacco product, uncomplicated; E11.40 Type 2 diabetes mellitus with diabetic neuropathy, unspecified; I10 Essential (primary) hypertension; Z20.822 Contact with and (suspected) exposure to COVID-19; Z79.84 Long term (current) use of oral hypoglycemic drugs
CPT/HCPCS: 87636; 99283

== ENCOUNTER → 2023-05-18 23:14 | Outpatient (CLI) | payer MEDICAID, SELFPAY ==
[2023-05-18 21:43] LABS: Amphetamine/Metha Screen,Urine Negative ng/ml (<1000); Barbiturates Screen,Urine Negative ng/ml (<200); Benzodiazepines Screen,Urine Negative ng/ml (<200); Cannabinoid Screen,Urine Negative ng/ml (<50); Cocaine Screen,Urine Negative ng/ml (<300); Methadone Screen,Urine Negative ng/ml (<300); Opiate Screen,Urine Negative ng/ml (<300); Phencyclidine Screen,Urine Negative ng/ml (<25)
[2023-05-23 17:44] LABS: Gabapentin,Urine 302.9 ug/mL (.)
[2023-05-31 18:07] LABS: Alprazolam Negative (Cutoff=100); Amphetamines Negative (Cutoff=500); Benzodiazepines Negative ng/mL (Cutoff=100); Clonazepam Negative (Cutoff=100); Flurazepam Negative (Cutoff=100); Lorazepam Negative (Cutoff=100); Midazolam Negative (Cutoff=100); Opiates Negative ng/mL (Cutoff=100); Temazepam Negative (Cutoff=100); Triazolam Negative (Cutoff=100)
== END ==
PROVIDERS: PCP Internal Medicine; Visit Provider Internal Medicine
DX: Z79.899 Other long term (current) drug therapy (principal); E07.9 Disorder of thyroid, unspecified
CPT/HCPCS: 80305; 80307; 80324; 80346; 80361; 82330; G0480

== ENCOUNTER 2023-06-15 20:38 | Outpatient (CLI) | payer MEDICAID, SELFPAY ==
[2023-06-15 18:46] LABS: Chloride 104 mmol/L (98-107); Potassium 5.2 mmoL/L (3.5-5.1); Sodium 137 mmol/L (136-145)
[2023-06-15 18:48] LABS: Alanine Aminotransferase 35 U/L (12-78); Aspartate Amino Transferase 42 U/L (17-59); Blood Urea Nitrogen 18 mg/dl (9-20); Estimated Glomerular Filt Rate 51 ml/min (>60); GFR (African American) 62 ML/MIN (>60)
[2023-06-15 18:49] LABS: Albumin Level 4.3 g/dl (3.5-5.0); Albumin/Globulin Ratio 1.6 (1.1-1.8); Alkaline Phosphatase 68 U/L (38-126); Anion Gap 17.2 mEq/L (5-15); Bilirubin,Total 0.6 mg/dl (0.2-1.3); Calcium 8.9 mg/dl (8.4-10.2); Carbon Dioxide 21 mmol/L (22.0-30.0); Cholesterol 161 mg/dl (140-200); Globulin 2.7 g/dL (1.3-3.2); Glucose 133 mg/dl (74-100); Triglycerides 268 mg/dl (30-150); VLDL Cholesterol 54 mg/dL (0-40)
[2023-06-15 18:50] LABS: Chol/HDL Ratio 6.4 (1-3.5); HDL Cholesterol 25 mg/dl (40-60)
[2023-06-15 19:08] LABS: 25-OH Vitamin D, Total 30.3 ng/mL (30-100)
[2023-06-15 19:20] LABS: Prostate Specific Ag Screen 0.3 ng/ml (0.0-4.0); Thyroid Stimulating Hormone 1.32 uIU/mL (0.465-4.68)
[2023-06-15 21:12] LABS: Amphetamine/Metha Screen,Urine Negative ng/ml (<1000)
[2023-06-15 21:17] LABS: Phencyclidine Screen,Urine Negative ng/ml (<25)
[2023-06-15 22:14] LABS: Barbiturates Screen,Urine Negative ng/ml (<200)
[2023-06-15 22:15] LABS: Benzodiazepines Screen,Urine Negative ng/ml (<200)
[2023-06-15 22:17] LABS: Cannabinoid Screen,Urine Negative ng/ml (<50)
[2023-06-15 22:18] LABS: Cocaine Screen,Urine Negative ng/ml (<300); Methadone Screen,Urine Negative ng/ml (<300)
[2023-06-15 22:19] LABS: Opiate Screen,Urine Negative ng/ml (<300)
[2023-06-15 22:32] LABS: Creatinine,Urine Random 92 mg/dL (Not Estab.); Microalbumin/Creatinine Ratio 11.3
== END 2023-06-15 23:59 ==
LOC: LAB.DROPOF 20:38
PROVIDERS: PCP Internal Medicine; Visit Provider Internal Medicine
DX: E11.42 Type 2 diabetes mellitus with diabetic polyneuropathy (principal); D64.9 Anemia, unspecified; E78.5 Hyperlipidemia, unspecified; E66.9 Obesity, unspecified; Z68.31 Body mass index [BMI] 31.0-31.9, adult; Z79.84 Long term (current) use of oral hypoglycemic drugs; Z79.899 Other long term (current) drug therapy; Z12.5 Encounter for screening for malignant neoplasm of prostate
CPT/HCPCS: 80053; 80061; 80307; 82043; 82306; 82570; 84443; G0103

== ENCOUNTER 2023-07-13 19:28 | Outpatient (CLI) | payer MEDICAID, SELFPAY ==
[2023-07-13 18:44] LABS: Basophils % 0.3 % (0.1-2.0); Eosinophils # 0.2 K/mm3 (0.0-0.4); Eosinophils % 2.2 % (0.1-12.0); Hematocrit 41.1 % (42.0-52.0); Hemoglobin 14.2 g/dL (14.1-18.0); Lymphocytes # 2.9 K/mm3 (0.7-4.5); Lymphocytes % 33.7 % (10-50); Mean Corpuscular HGB Conc 34.5 g/dL (31.8-35.4); Mean Corpuscular Hemoglobin 33.8 pg (27.0-31.2); Mean Platelet Volume 10.6 fl (7.4-10.4); Monocytes # 0.6 K/mm3 (0.1-1.0); Monocytes % 6.4 % (1.7-9.3); Neutrophils % 57.4 % (37.0-80.0); Platelet Count 255 K/mm3 (142-424); Red Cell Distribution Width 13.3 % (11.5-17.5); White Blood Count 8.7 K/mm3 (4.8-10.8)
[2023-07-13 18:46] LABS: Alanine Aminotransferase 30 U/L (12-78); Albumin Level 4.7 g/dl (3.5-5.0); Albumin/Globulin Ratio 1.7 (1.1-1.8); Alkaline Phosphatase 70 U/L (38-126); Anion Gap 13.4 mEq/L (5-15); Aspartate Amino Transferase 44 U/L (17-59); Bilirubin,Total 0.6 mg/dl (0.2-1.3); Blood Urea Nitrogen 16 mg/dl (9-20); Calcium 10.2 mg/dl (8.4-10.2); Carbon Dioxide 23 mmol/L (22.0-30.0); Chloride 105 mmol/L (98-107); Chol/HDL Ratio 6.5 (1-3.5); Cholesterol 183 mg/dl (140-200); Estimated Glomerular Filt Rate 51 ml/min (>60); GFR (African American) 62 ML/MIN (>60); Globulin 2.8 g/dL (1.3-3.2); Glucose 101 mg/dl (74-100); HDL Cholesterol 28 mg/dl (40-60); Potassium 5.4 mmoL/L (3.5-5.1); Sodium 136 mmol/L (136-145); Total Protein,Serum 7.5 g/dl (6.3-8.2); Triglycerides 300 mg/dl (30-150); VLDL Cholesterol 60 mg/dL (0-40)
[2023-07-13 18:58] LABS: Direct LDL Cholesterol 109.18 mg/dL (100-129)
[2023-07-13 19:35] LABS: Vitamin B12 262 pg/mL (239-931)
[2023-07-13 20:56] LABS: Ferritin 246 ng/ml (17.9-464)
[2023-07-15 18:20] LABS: Peripheral Smear Review Scanned Result
== END 2023-07-13 23:59 ==
LOC: LAB.DROPOF 19:28
PROVIDERS: PCP Internal Medicine; Visit Provider Internal Medicine
DX: D64.9 Anemia, unspecified (principal); E78.5 Hyperlipidemia, unspecified; E66.3 Overweight; Z79.899 Other long term (current) drug therapy
CPT/HCPCS: 80053; 80061; 82607; 82728; 85025

== ENCOUNTER 2023-08-05 19:48 | Outpatient (CLI) | payer MEDICAID, SELFPAY ==
[2023-08-05 20:30] LABS: Chloride 104 mmol/L (98-107); Potassium 5.4 mmoL/L (3.5-5.1); Sodium 138 mmol/L (136-145)
[2023-08-05 20:33] LABS: Alanine Aminotransferase 31 U/L (12-78); Albumin Level 4.5 g/dl (3.5-5.0); Albumin/Globulin Ratio 1.7 (1.1-1.8); Alkaline Phosphatase 85 U/L (38-126); Anion Gap 16.4 mEq/L (5-15); Aspartate Amino Transferase 38 U/L (17-59); Bilirubin,Total 0.4 mg/dl (0.2-1.3); Blood Urea Nitrogen 20 mg/dl (9-20); Carbon Dioxide 23 mmol/L (22.0-30.0); Estimated Glomerular Filt Rate 47 ml/min (>60); GFR (African American) 57 ML/MIN (>60); Globulin 2.6 g/dL (1.3-3.2); Total Protein,Serum 7.1 g/dl (6.3-8.2)
[2023-08-05 20:34] LABS: Calcium 9.7 mg/dl (8.4-10.2); Glucose 117 mg/dl (74-100)
== END 2023-08-05 23:59 ==
LOC: LAB.DROPOF 19:48
PROVIDERS: PCP Internal Medicine; Visit Provider Internal Medicine
DX: R53.83 Other fatigue (principal)
CPT/HCPCS: 80053

== ENCOUNTER 2023-11-30 15:59 | Outpatient (RCR) | payer MEDICAID, SELFPAY ==
--- NOTE | 2023-11-30 17:45 | HMH.PTOPEV ---
PT Outpatient Evaluation Rehab PT Outpatient Evaluation Start: 11/30/23 16:01 Freq: Status: Active Protocol: Document 11/30/23 16:01 HARRY (Rec: 11/30/23 17:44 HARRY [id number]) E-signed By Apurva Lawson, PT Outpatient Therapy Subjective History Subjective History Pt is a 63 y/o male who reports chronic low back pain for years. Pt reports constant pain along his waist line, denies distal symptoms, numbness/tingling or b/b dysfunction.Pt denies having recent imaging of his low back . Pt reports pain is aggravated by prolonged standing/walking, bending, lifting, and prolonged sitting such as with traveling. Pt states he has a 6 month old grandson he is getting custody of soon and needs to be able to lift him often. Pt reports he is scheduled to see pain management this week as well for pain. Medical History: Osteoarthritis, High triglycerides, kidney failure, Type II Diabetes, Essential Hypertension New diagnosis of cancer in past 12 No months? Chief Complaint Pain Symptom Type Ache,Throb,Sharp,Dull,Stabbing Symptoms Relieved By Rest/Positioning,Prescription Meds Symptoms Aggravated By Sitting,Standing,Bending/ Stooping,Physical Activity, Walking,Lifting Current Functional Limitations Lifting,Housework,Sleeping, Standing,Sitting,Squatting, Walking,Stairs,Bending/ Stooping Symptom Description Constant but Variable Level of pain today (0-10) 8 Pain scale - at its best (0-10) 2 Pain scale - at its worst (0-10) 10 Lumbopelvic Eval Posture Lumbar Spine Posture Standing Position Decreased Lordosis Palapation tenderness bilateral lumbar spinal tenderness Yes paraspinal tenderness Yes buttock tenderness Yes Lumbar/Sacral Palpation Findings Tenderness Accessory Movement L-spine Vertebrae Accessory Movements Central P/A [place] that Elicit Symptoms L2 bilateral L3 bilateral L4 bilateral L5 bilateral S1 bilateral Range of Motion Lumbar Spine Active Flexion Range of 60 Motion (degrees) Lumbar Spine Active Extension Range of 10 Motion (degrees) Left Lumbar Spine Lateral Flexion Active 10 Range of Motion (degrees) Right Lumbar Spine Lateral Flexion 10 Active Range of Motion (degrees) Manual Muscle Test Bilateral Knee Extension Strength Grade 4- Good- Knee Flexion Strength Grade 4- Good- Hip Flexion Strength Grade 3 Fair Hip Abduction Strength Grade 3+ Fair+ Hip Adduction Strength Grade 3+ Fair+ Hip Extension Strength Grade 3+ Fair+ DTR Rt Patellar 1+ Lt Patellar 1+ Rt Gastroc/Soleus 1+ Lt Gastroc/Soleus 1+ Altered Sensation Bilateral Comment equal and intact to light touch sensation Oswestry Index Section 1 Pain Intensity The pain comes and goes and is severe Section 2 Personal Care (Washing,Dresing) increase the pain and I find it necessary to change my way of doing it Section 3 Lifting I can only lift very light weights at most Section 4 Walking I cannot walk at all without increasing pain Section 5 Sitting I avoid sitting because it increases my pain immediately Section 6 Standing I cannot stand more than 1 hour without increasing pain Section 7 Sleeping Because of pain, my normal nights sleep is less than 2 hours sleep Section 8 Social Life I hardly have any social life because of pain Section 9 Traveling Pain restricts me to short necessary journeys under 30 minutes Section 10 Changing Degreee of Pain My pain is rapidly getting worse Score and Risk Level Oswestry Sc 42 Oswestry Risk Level Completely Disabled Outpatient Therapy Assessment Impairments Problems/Impairmments Palpation Tenderness,Impaired Range of Motion,Impaired Strength,Impaired Walking, Impaired Standing,Impaired Sitting,Impaired Lifting, Impaired Household Care, Impaired Squatting,Impaired Bending,Subjective C/O Pain, Impaired Self Care/Self Management Prognosis Rehab Potential Good Clinical Impression Consistent with Diagnosis Yes Short Term Goals Number of Weeks 3 Increase Range of Motion Yes: Improve lumbar AROM flexion to at least 70 Improve Oswestry Score Yes: Improve score to 37 to improve overall QOL Decrease Subjective C/O Pain Yes: Improve pain at worst to 8/10 to improve overall QOL Improve Self Care/Self Management Yes Patient to be Ind w/ HEP Yes Fdc Goals Number of Weeks 6 Increase Range of Motion Yes: Improve lumbar AROM flex to 90, ext & LF to 15 Increase Strength Yes: Improve BLE MMT to 4-4+/5 grossly to assist with function Restore Ability to Lift Objects to Waist Yes: 20# with proper mechanics Level to assist with lifting grandson Improve Oswestry Score Yes: Improve score to 32 or less to improve overall QOL Decrease Subjective C/O Pain Yes: Improve pain at worst to 6/10 to improve overall QOL Outpatient Therapy Plan of Care Treatment Plan May Include Therapeutic Exercise Including Home Yes Exercise Program Manual Therapy Techniques Yes Neuromuscular Re-education Yes Therapeutic Activities to Return to Yes Previous Functional/Work Level ADL/Self Care Education Yes Mechanical Traction Yes Dry Needling Yes Thermal Modalities Yes Electrical Stimulation Yes Ultrasound/Phonophoresis Yes Iontophoresis Yes Massage Yes Group Therapy for Medicare Yes Eval/Re-Eval Yes Frequency Times per week 2 Duration Number of Weeks 4-6 Addendums This patient is a candidate for social No or vocational rehab? Patient/Guardian verbally acknowledges Yes understanding of treatment program and consents to further treatment? Patient/Guardian verbally acknowledges Yes understanding of diagnosis, prognosis and goals for treatment? Eval Complexity PT Charges 68038 - Moderate Complexity Shoulder/Elbow Eval Shoulder Objective Measurements Elbow Objective Measurements PHYSICIAN CERTIFICATION: I certify the specified therapy services for Gabriele Sung are required, authorized, and reviewed every 30 days.
== END 2023-11-30 17:00 | disposition home or self-care (01) ==
LOC: PT 15:59
PROVIDERS: Visit Provider Internal Medicine
DX: M54.9 Dorsalgia, unspecified (principal)
CPT/HCPCS: 97163

== ENCOUNTER 2023-12-01 13:02 | Outpatient (POV) | payer MEDICAID, SELFPAY ==
--- NOTE | 2023-12-01 13:14 | EXP.PAIN.OV ---
HPI Data of Consult Patient: new to practice Consult date: 12/01/23 Requesting Physician: Apurva Pink APRN Primary Care Provider: Koko Hodgson DO Consult Narrative Reason for consult: Low back pain History of present illness: Mr. Sung is a 63 year old male who presents today as a new patient. He is a referral from Dr. Morris's office. Today he rates his pain a 8 out of 10. Patient states his pain is all in his low back with radiating symptoms down his left leg. He states this been going on for years and progressively worsened. He describes it as an aching, throbbing sensation with numbness and tingling. Patient denies any prior injection history or surgery history. He states he has tried [id number] medication along with heat and ice and topicals and no improvement. He did just recently start physical therapy. Patient does state the pain is worse with increased activity and does interfere with his ADLs. Patient denies any recent imaging.Patient was previously seen in Dr. Rowland's office back in 2018. Patient is prescribed gabapentin from his PCP. His Antonio has been reviewed and is appropriate. CC: Apurva Pink APRN [facility] Disclaimer: The information contained in this section may have been updated after the patient was seen, as this information can be updated by other users. Social History (Reviewed 11/22/23 @ 10:20 by Kae Florence [facility]) Smoking Status: Never smoker second hand exposure: Yes alcohol intake: never substance use type: denies use current occupational status: employed and retired Travel in the last 8 weeks: None household members: spouse housing: house caffeine: No Review of Systems Review of Systems Review of systems:: pertinent systems reviewed and negative unless documented below Review of systems (narrative): Review of Systems: General: No recent weight changes, no fever, no sleep disturbances Respiratory: No cough, no shortness of air, no recurring pulmonary infections Cardiovascular/peripheral vascular: No chest pain, no palpitations, no edema, no shortness of breath Gastrointestinal: No new onset incontinence, normal bowel movements reported Genitourinary: No new onset incontinence Musculoskeletal: Low back pain left leg pain Psychiatric: [Normal mood/affect] Neurological: [Denies weakness in extremities], [denies balance issues] Meds Home Medications and Allergies Home Medications Medication Instructions Recorded Confirmed Type clotrimazole-betamethasone 1 See Rx Instructions .Route 04/20/22 11/22/23 Rx %-0.05 % topical cream .COMPLEX #45 grams blood sugar diagnostic (OneTouch #100 strips 04/14/23 11/22/23 Rx Verio test strips) blood sugar diagnostic (OneTouch #100 strips 05/18/23 11/22/23 Rx Ultra Test strips) cholecalciferol (vitamin D3) 50 See Rx Instructions .Route 05/18/23 11/22/23 Rx mcg (2,000 unit) capsule .COMPLEX #30 caps lancets 33 gauge #100 ea 05/18/23 11/22/23 Rx levothyroxine 25 mcg tablet See Rx Instructions .Route 05/18/23 11/22/23 Rx .COMPLEX #90 tabs metformin 1,000 mg tablet See Rx Instructions .Route 05/18/23 11/22/23 Rx .COMPLEX #60 tabs metoprolol tartrate 100 mg tablet See Rx Instructions .Route 05/18/23 11/22/23 Rx .COMPLEX #180 tabs sildenafil 100 mg tablet 100 mg PO ONCE PRN sexual activity 05/18/23 11/22/23 Rx #30 tabs tamsulosin 0.4 mg capsule See Rx Instructions .Route 05/18/23 11/22/23 Rx .COMPLEX #90 caps aspirin 81 mg tablet,delayed mg PO 07/13/23 11/22/23 History release lovastatin 20 mg tablet mg PO 07/13/23 11/22/23 History fenofibrate 54 mg tablet 54 mg PO DAILY 30 days #30 tabs 07/15/23 11/22/23 Rx mecobalamin (vitamin B12) 1,000 1,000 mcg PO DAILY 90 days #90 tabs 07/15/23 11/22/23 Rx mcg chewable tablet blood sugar diagnostic (Accu-Chek #100 ea 08/10/23 11/22/23 Rx Guide test strips) blood-glucose meter (Accu-Chek #1 ea 08/10/23 11/22/23 Rx Guide Glucose Meter) hydroxyzine pamoate 25 mg capsule See Rx Instructions .Route 09/07/23 11/22/23 Rx .COMPLEX #60 caps chlorthalidone 15 mg tablet 15 mg PO DAILY 30 days #30 tabs 09/29/23 11/22/23 Rx tirzepatide 2.5 mg/0.5 mL 2.5 mg (0.5 mL) SQ WEEKLY 4 weeks 09/30/23 11/22/23 Rx subcutaneous pen injector #2 mL blood-glucose meter,continuous #1 ea 10/27/23 11/22/23 Rx (Dexcom G7 Signal Operator) blood-glucose sensor (Dexcom G7 #3 ea 10/27/23 11/22/23 Rx Sensor device) lisinopril 10 mg tablet See Rx Instructions .Route 11/03/23 11/22/23 Rx .COMPLEX #90 tabs gabapentin 600 mg tablet 600 mg PO TID . #90 tabs 11/22/23 11/22/23 Rx triamterene 37.5 1 tab PO DAILY 11/22/23 11/22/23 History mg-hydrochlorothiazide 25 mg tablet New Prescriptions to Start Prescriptions: Allergies Allergy/AdvReac Type Severity Reaction Status Date / Time aspirin AdvReac Mild tachycardia Verified 11/22/23 10:18 [From [facility]] Objective Narrative: Physical Exam: General: Alert and oriented x3, no acute distress, pleasant and cooperative Lungs: Respirations even and unlabored, symmetrical chest expansion Eyes: PERRL Musculoskeletal: Flexion and extension of lumbar [spine] somewhat guarded secondary to pain, [antalgic gait noted] Neurological: Speech clear, no gross sensory deficit Additional findings Additional findings: FINDINGS Patient has modest underlying volume osseous spinal canal. Vertebral bodies are intact and the disc spaces fracture fairly well-maintained throughout the lumbar region. Beginning superiorly At lower thoracic spine T 11/12 disc: mild diffuse disc bulge at this level along mild kyphosis and with mild facet hypertrophy combine to yield mild spinal stenosis at T11/12. T12/L1.:. Disc intact. No foramen patent. L1/L2, disc intact.. Mild facet hypertrophy L2/3. Disc intact. Moderate facet hypertrophy arthropathy does narrow the spinal canal with borderline spinal stenosis.. . There is a focal elongated cystic area overlying the right facet possibly extension of the synovial cyst from the facet This measured 18 mm length x 7.5 mm AP. L3/4. Diffuse disc bulge most evident towards the left foramen. This along with moderate facet hypertrophy yields mild/moderate left foraminal encroachment and borderline/mild central canal stenosis.. Moderate bilateral facet hypertrophy. L4/5 mild foraminal disc bulge most evident towards the left. Prominent bilateral Facet hypertrophy most exuberant at the left facet.. Mildly flavum hypertrophy .. Also bilateral foraminal encroachment most pronounced the left. .. The features combine to yield moderate central canal stenosis... L5/S1:. Only scant disc bulge but there is prominent facet hypertrophy bilaterally. Fairly exuberant. These Features (mainly the facet hypertrophy) yields mild/moderate bilateral foraminal encroachment bilateral,. Left foramen narrowing greater than right 3-D MRI myelogram image set shows multilevel tapering of the spinal canal/multilevel spinal stenosis. On spinal stenosis most pronounced at L4/5 with mild spinal stenosis L 3/4 L2/3. IMPRESSION ...... . Degenerative changes spine, with developing multilevel spinal stenosis.. Modest volume underlying osseous spinal canal is further narrowed due to prominent facet hypertrophy along with mild bulging disc at multiple levels.: ... L4/5, spinal stenosis most evident at this level. Moderate Spinal Stenosis, & left foraminal encroachment >right.... Due mainly due to exuberant facet hypertrophy. ... L3/4. Foraminal disc bulge most evident towards left foramen. Moderate bilateral facet hypertrophy . Features mild central canal stenosis & moderate left foraminal encroachment ... L2/3. Mild foraminal disc bulge, along with moderate facet hypertrophy. Yields mild central canal stenosis. Only minimal bilateral foraminal encroachment Also note mild central canal stenosis at T11/12. Mild disc bulge,, accentuated kyphosis along with posterior element hypertrophy- yields mild central canal stenosis at this level as well Dictated By: Star Sylvester Signed By: <Electronically signed by Star Sylvester in OV> 10/11/17 2971 DD/ 1811 Assessment and Plan *Assessment and plan (1) Degenerative disc disease, lumbar: Status: Acute Category: Medical Code(s): M51.36 - Other intervertebral disc degeneration, lumbar region (2) Lumbar radiculopathy: Status: Acute Category: Medical Code(s): M54.16 - Radiculopathy, lumbar region Plan I did discuss with the patient at length that we are an interventional pain clinic and we do injection therapy. Patient stated he was not interested in this option at all stating that he did not like the needles. I have counseled the patient that we do not prescribe any scheduled medications to new patients and that at this time I will not make him a follow-up appointment however if he decides that he would like to try other therapies such as injections or pain pump trial in the future that he is more than welcome to contact our office for a follow-up appointment. Patient is agreeable to this option. Patient has been instructed to contact the clinic with any concerns before the next appointment. Dr. Rowland has reviewed this note and agrees with this plan of care. This note was dictated using voice recognition software and make contain errors or omissions.
[2023-12-01 13:50] VITALS: BP 117/67; PULSE 55; RESP 18; O2SAT 99; BMI 30.2
== END 2023-12-01 23:59 | disposition home or self-care (01) ==
LOC: SC.PAIN 13:03
PROVIDERS: PCP Internal Medicine; Visit Provider Nurse Practitioner Family
DX: G89.29 Other chronic pain (principal); M51.36 Other intervertebral disc degeneration, lumbar region; M54.16 Radiculopathy, lumbar region
CPT/HCPCS: 99202; G0463

== ENCOUNTER 2024-02-07 11:47 | Outpatient (CLI) | payer MEDICAID, SELFPAY ==
[2024-02-07 18:52] LABS: Hemoglobin A1C 9.9 % (4.0-6.0)
[2024-02-07 19:08] LABS: Alanine Aminotransferase 31 U/L (12-78); Albumin/Globulin Ratio 1.3 (1.1-1.8); Alkaline Phosphatase 120 U/L (38-126); Anion Gap 13.9 mEq/L (5-15); Aspartate Amino Transferase 30 U/L (17-59); Bilirubin,Total 0.5 mg/dl (0.2-1.3); Blood Urea Nitrogen 18 mg/dl (9-20); Calcium 9.5 mg/dl (8.4-10.2); Carbon Dioxide 21 mmol/L (22.0-30.0); Chloride 103 mmol/L (98-107); Estimated Glomerular Filt Rate 51 ml/min (>60); GFR (African American) 62 ML/MIN (>60); Glucose 351 mg/dl (74-100); Potassium 4.9 mmoL/L (3.5-5.1); Sodium 133 mmol/L (136-145)
[2024-02-07 21:21] LABS: Creatinine,Urine Random 62 mg/dL (Not Estab.)
[2024-02-07 21:23] LABS: Microalbumin/Creatinine Ratio 43.3
== END 2024-02-07 23:59 | disposition home or self-care (01) ==
LOC: LAB.DROPOF 02-08 13:28
PROVIDERS: PCP Internal Medicine; Visit Provider Internal Medicine
DX: I12.9 Hypertensive chronic kidney disease with stage 1 through stage 4 chronic kidney disease, or unspecified chronic kidney disease (principal); N18.31 Chronic kidney disease, stage 3a; E87.5 Hyperkalemia; E11.9 Type 2 diabetes mellitus without complications; Z79.84 Long term (current) use of oral hypoglycemic drugs
CPT/HCPCS: 80053; 82043; 82570; 83036

== ENCOUNTER 2024-04-05 11:10 | Outpatient (CLI) | payer MEDICAID, SELFPAY ==
[2024-04-05 19:16] LABS: Chol/HDL Ratio 6.1 (1-3.5); Cholesterol 158 mg/dl (140-200); HDL Cholesterol 26 mg/dl (40-60)
[2024-04-05 19:18] LABS: Triglycerides 461 mg/dl (30-150)
[2024-04-05 19:27] LABS: Direct LDL Cholesterol 82.08 mg/dL (100-129)
[2024-04-05 19:57] LABS: Hemoglobin A1C 11.9 % (4.0-6.0)
== END 2024-04-05 23:59 | disposition home or self-care (01) ==
LOC: LAB.DROPOF 04-06 15:46
PROVIDERS: PCP Internal Medicine; Visit Provider Internal Medicine
DX: E78.2 Mixed hyperlipidemia (principal); E11.9 Type 2 diabetes mellitus without complications; Z79.84 Long term (current) use of oral hypoglycemic drugs
CPT/HCPCS: 80061; 83036

== ENCOUNTER 2024-05-31 12:00 | Outpatient (CLI) | payer MEDICAID, SELFPAY ==
[2024-05-31 18:04] LABS: Basophils % 0.5 % (0.1-2.0); Eosinophils # 0.1 K/mm3 (0.0-0.4); Eosinophils % 1.8 % (0.1-12.0); Lymphocytes # 2.2 K/mm3 (0.7-4.5); Lymphocytes % 27.4 % (10-50); Mean Corpuscular HGB Conc 34.1 g/dL (31.8-35.4); Mean Corpuscular Hemoglobin 33.1 pg (27.0-31.2); Mean Corpuscular Volume 96.9 fl (80-94); Mean Platelet Volume 12.2 fl (7.4-10.4); Monocytes # 0.6 K/mm3 (0.1-1.0); Monocytes % 7.4 % (1.7-9.3); Neutrophils % 62.8 % (37.0-80.0); Platelet Count 254 K/mm3 (142-424); Red Blood Count 4.23 M/mm3 (4.60-6.20); White Blood Count 7.9 K/mm3 (4.8-10.8)
[2024-05-31 18:37] LABS: Microalbumin/Creatinine Ratio 48.9
[2024-05-31 18:46] LABS: Alanine Aminotransferase 22 U/L (12-78); Albumin Level 4.7 g/dl (3.5-5.0); Albumin/Globulin Ratio 1.8 (1.1-1.8); Alkaline Phosphatase 80 U/L (38-126); Anion Gap 17.7 mEq/L (5-15); Aspartate Amino Transferase 29 U/L (17-59); Bilirubin,Total 0.7 mg/dl (0.2-1.3); Blood Urea Nitrogen 30 mg/dl (9-20); Calcium 10.2 mg/dl (8.4-10.2); Carbon Dioxide 21 mmol/L (22.0-30.0); Chloride 103 mmol/L (98-107); Chol/HDL Ratio 5.7 (1-3.5); Cholesterol 149 mg/dl (140-200); Estimated Glomerular Filt Rate 44 ml/min (>60); GFR (African American) 53 ML/MIN (>60); Globulin 2.6 g/dL (1.3-3.2); Glucose 197 mg/dl (74-100); HDL Cholesterol 26 mg/dl (40-60); Potassium 4.7 mmoL/L (3.5-5.1); Sodium 137 mmol/L (136-145); Total Protein,Serum 7.3 g/dl (6.3-8.2); Triglycerides 316 mg/dl (30-150); VLDL Cholesterol 63 mg/dL (0-40)
[2024-05-31 18:48] LABS: Creatinine,Urine Random 74 mg/dL (Not Estab.)
[2024-05-31 18:56] LABS: Direct LDL Cholesterol 78.69 mg/dL (100-129)
== END 2024-05-31 23:59 | disposition home or self-care (01) ==
LOC: LAB.DROPOF 06-01 12:47
PROVIDERS: PCP Internal Medicine; Visit Provider Internal Medicine
DX: N18.31 Chronic kidney disease, stage 3a (principal); E11.9 Type 2 diabetes mellitus without complications; E78.2 Mixed hyperlipidemia; R53.83 Other fatigue; E87.5 Hyperkalemia
CPT/HCPCS: 80053; 80061; 82043; 82570; 83036; 85025

== ENCOUNTER 2024-07-26 11:30 | Outpatient (CLI) | payer MEDICAID, SELFPAY ==
[2024-07-26 21:56] LABS: Basophils % 0.5 % (0.1-2.0); Eosinophils # 0.2 K/mm3 (0.0-0.4); Eosinophils % 2.7 % (0.1-12.0); Hematocrit 40.9 % (42.0-52.0); Lymphocytes # 2.6 K/mm3 (0.7-4.5); Lymphocytes % 30.4 % (10-50); Mean Corpuscular HGB Conc 34.2 g/dL (31.8-35.4); Mean Corpuscular Volume 96.5 fl (80-94); Mean Platelet Volume 12.2 fl (7.4-10.4); Monocytes # 0.6 K/mm3 (0.1-1.0); Monocytes % 7.5 % (1.7-9.3); Neutrophils % 58.6 % (37.0-80.0); Platelet Count 244 K/mm3 (142-424); Red Blood Count 4.24 M/mm3 (4.60-6.20); Red Cell Distribution Width 12.6 % (11.5-17.5); White Blood Count 8.6 K/mm3 (4.8-10.8)
[2024-07-26 23:00] LABS: Hemoglobin A1C 8.2 % (4.0-6.0)
[2024-07-26 23:09] LABS: Chloride 103 mmol/L (98-107)
[2024-07-26 23:10] LABS: Albumin Level 4.7 g/dl (3.5-5.0); Potassium 4.6 mmoL/L (3.5-5.1); Sodium 137 mmol/L (136-145)
[2024-07-26 23:12] LABS: Blood Urea Nitrogen 19 mg/dl (9-20); Estimated Glomerular Filt Rate 44 ml/min (>60); GFR (African American) 53 ML/MIN (>60)
[2024-07-26 23:13] LABS: Alanine Aminotransferase 24 U/L (12-78); Alkaline Phosphatase 105 U/L (38-126); Anion Gap 16.6 mEq/L (5-15); Aspartate Amino Transferase 26 U/L (17-59); Bilirubin,Total 0.4 mg/dl (0.2-1.3); Calcium 9.6 mg/dl (8.4-10.2); Carbon Dioxide 22 mmol/L (22.0-30.0); Globulin 2.3 g/dL (1.3-3.2); Glucose 164 mg/dl (74-100)
[2024-07-28 21:06] LABS: Peripheral Smear Review Scanned Result
== END 2024-07-26 23:59 | disposition home or self-care (01) ==
LOC: LAB.DROPOF 07-27 10:54
PROVIDERS: PCP Internal Medicine; Visit Provider Internal Medicine
DX: N18.31 Chronic kidney disease, stage 3a (principal); E11.9 Type 2 diabetes mellitus without complications; E03.9 Hypothyroidism, unspecified; E78.5 Hyperlipidemia, unspecified
CPT/HCPCS: 80053; 83036; 85025